=== PATIENT | male | born 1955 | race Caucasian/White ===

== ENCOUNTER → 2023-09-13 14:51 | Outpatient (REF) | payer OTHER, SELFPAY | LOC: HWRCS 14:51 | PROVIDERS: ATTENDING PHYSICIAN Internal Medicine Cardiovascular Disease; FAMILY PHYSICIAN Family Medicine | DX: I25.10 Atherosclerotic heart disease of native coronary artery without angina pectoris (principal); I35.8 Other nonrheumatic aortic valve disorders; G89.29 Other chronic pain | CPT/HCPCS: 93306 ==

== ENCOUNTER → 2023-09-14 07:57 | Outpatient (REF) | payer OTHER, SELFPAY | LOC: DHCBC/DCA 07:57 | PROVIDERS: ATTENDING PHYSICIAN Internal Medicine Cardiovascular Disease; FAMILY PHYSICIAN Family Medicine | DX: I25.10 Atherosclerotic heart disease of native coronary artery without angina pectoris (principal); I35.8 Other nonrheumatic aortic valve disorders; G89.29 Other chronic pain | CPT/HCPCS: 78452; 93017; A9500; J2785 ==

== ENCOUNTER 2023-12-23 10:30 | Day surgery (SDC) | payer OTHER, SELFPAY ==
[2023-12-23] VITALS (9 sets, daily range): BP systolic 117–155; BP diastolic 68–98; BMI 27.3
[2023-12-23] MEDS: NSS 266 ML IV (11:03)
--- NOTE | 2023-12-23 12:01 | ITS.CL.CATH ---
[employer] - Catheterization
Cardiac Catheterization
Procedure Report:
CARDIAC CATHETERIZATION REPORT
Date of Procedure: 12/23/2023
Referring: Dioni Dietrich MD
Indication: Exertional dyspnea with abnormal stress test and coronary calcium score 400
�
HEMODYNAMIC DATA
AO: 149/84
LV: 149/20
�
LEFT VENTRICULOGRAPHY: Borderline anterolateral wall motion with EF 58%
�
CORONARY ANGIOGRAPHY
Dominance: Right
Left Main: Normal
LAD: Mild luminal irregularities
Circumflex: 50% mid circumflex stenosis distal to the takeoff of the small OM1 and proximal to the origin of the large OM 2. There is 50% stenosis in the circumflex just distal to the origin of OM 2. The circumflex terminates with a sized medium
OM 3 and a small posterolateral branch
RCA: 30% mid RCA stenosis with otherwise mild luminal irregularities
�
Closure Device: None-the procedure was performed via the right radial artery. The Vikram's test was normal prior to the procedure.
�
Radiation (mGy): 200
DAP (cm2.Gy): 15.1
Fluoroscopy time: 2.0 minutes
�
CONCLUSIONS
1:�Systemic hypertension
2:�Mildly elevated LVEDP
3. Borderline anterolateral wall motion with EF 58%
4. Noncritical CAD as described
5. Recommend continued medical therapy/risk factor modification. Smoking cessation mandatory if he wishes to live a normal lifespan
�
�
Copy to: Dioni Dietrich MD, [facility],
�
Freddie Tao MD, [facility], [facility]
[2023-12-23] MEDS: NSS 1000 IV (13:05)
== END 2023-12-23 14:40 | disposition home or self-care (01) ==
LOC: CATH 10:30
PROVIDERS: ATTENDING PHYSICIAN Internal Medicine Cardiovascular Disease; FAMILY PHYSICIAN Student in an Organized Health Care Education/Training Program; OTHER PHYSICIAN Internal Medicine Cardiovascular Disease
DX: I25.10 Atherosclerotic heart disease of native coronary artery without angina pectoris (principal); I10 Essential (primary) hypertension; R06.09 Other forms of dyspnea; R94.39 Abnormal result of other cardiovascular function study; E78.5 Hyperlipidemia, unspecified; I49.3 Ventricular premature depolarization; F17.210 Nicotine dependence, cigarettes, uncomplicated; Z82.49 Family history of ischemic heart disease and other diseases of the circulatory system; Z79.82 Long term (current) use of aspirin
CPT/HCPCS: 93458; C1894; Q9967

== ENCOUNTER → 2024-09-06 10:17 | Outpatient (REF) | payer OTHER, SELFPAY | LOC: RAD 10:17 | PROVIDERS: ATTENDING PHYSICIAN Internal Medicine Cardiovascular Disease; FAMILY PHYSICIAN Student in an Organized Health Care Education/Training Program | DX: I82.409 Acute embolism and thrombosis of unspecified deep veins of unspecified lower extremity (principal); M79.89 Other specified soft tissue disorders | CPT/HCPCS: 93971 ==